=== PATIENT | female | born 1950 | race American Indian/Alaskan Native ===

== ENCOUNTER 2016-09-02 07:15 | Outpatient (CLI) | payer MEDICARE, BC ==
--- NOTE | 2016-09-02 08:52 | Cat Scan Report ---
CT CHEST WITHOUT CONTRAST: HISTORY: Smoker, lung cancer screening, immunosuppressed patient. TECHNIQUE: Helical CT with sagittal and coronal reformatted images. FINDINGS: Heart size is normal. There is no evidence of adenopathy within the mediastinum. Pulmonary belinda are free of any mass and the lungs are clear of infiltrates. The pleura is unremarkable. No masses involve the chest wall. No suspicious bony lesion or fracture is identified. Previous right breast replacement changes are noted and intact. Limited images of the upper abdomen are within normal limits. IMPRESSION: Unremarkable noncontrast CT chest. No significant emphysematous changes are demonstrated.
== END 2016-09-02 07:16 | disposition home or self-care (01) ==
LOC: CT 07:15
PROVIDERS: ATTEND Family Medicine
DX: Z12.2 Encounter for screening for malignant neoplasm of respiratory organs (principal); D89.9 Disorder involving the immune mechanism, unspecified; Z87.891 Personal history of nicotine dependence
CPT/HCPCS: 71250

== ENCOUNTER 2016-09-24 14:06 | Outpatient (CLI) | payer MEDICARE ==
--- NOTE | 2016-09-24 15:24 | Mammography Report ---
BONE DENSITY STUDY: DEFINITIONS: BMD = Bone Mineral Density T-score = BMD related to mean peak bone mass of young adult (mean expressed in Standard Deviation) Z-score = Age matched BMD expressed in SD World Health Organization (WHO) Diagnostic Criteria Normal T-score > -1 SD Osteopenia T-score between -1 and -2.4 SD Osteoporosis T-score -2.5 SD or below FINDINGS: The weighted average BMD of lumbar spine L1-L4 is 1.038 with a T-score of -0.1. The weighted average BMD of hip is 1.040 with a T-score of 0.8. IMPRESSION: The patient's T-score is diagnostic for normal bone density and low relative risk for fracture. NOTE: BMD is not the only risk factor for fracture; also consider factors such as the patient's age, risk of falling, previous osteoporotic fracture, family history of osteoporotic fractures, current smoker, and low body weight. Chinchilla's triangle is a region of interest in femur, predominantly of trabecular bone. It is not a true anatomic site, and [facility] does not recommend its use clinically.
== END 2016-09-24 14:07 | disposition home or self-care (01) ==
LOC: MAMMO 14:06
PROVIDERS: ATTEND Family Medicine
DX: M89.9 Disorder of bone, unspecified (principal); D89.9 Disorder involving the immune mechanism, unspecified; D86.9 Sarcoidosis, unspecified; R29.6 Repeated falls; Z78.0 Asymptomatic menopausal state; Z80.3 Family history of malignant neoplasm of breast; Z85.3 Personal history of malignant neoplasm of breast; Z90.710 Acquired absence of both cervix and uterus
CPT/HCPCS: 77080